=== PATIENT | female | born 1975 | race Caucasian/White ===

== ENCOUNTER 2017-03-05 17:53 | Emergency (ER) | payer MEDICAID ==
[2017-03-05] MEDS ORDERED: Bacitracin Oint 1 GM U/D Packet TOP ONE (18:03)
[2017-03-05 18:09] VITALS: BP 127/84
--- NOTE | 2017-03-05 18:52 | EDM.PDOC ---
[id number] 4d HURT FINGER Time Seen by Provider: 03/05/17 18:10 Source of Information: Reports: Patient, Family History Limitations: Reports: No Limitations - History of Present Illness INITIAL COMMENTS - FREE TEXT/NARRATIVE: 41-year-old female who cut her right hand on a piece of tin while taking out the garbage. She has a flap laceration on the back of her right hand at the base of the small finger. Onset: Sudden Duration: Hour(s): (Within the past hour) Location: Reports: Upper Extremity, Right Severity: Mild Associated Symptoms: Reports: No Other Symptoms - Related Data Allergies Allergy/AdvReac Type Severity Reaction Status Date / Time metronidazole [From Flagyl] Allergy Severe Anaphylactic Verified 12/09/15 07:44 Shock erythromycin base Allergy Rash Verified 12/09/15 07:44 [Erythromycin Base] Home Meds: Home Meds Adalimumab [Humira] 40 mg SUBCUT .[id number] 06/05/14 [History] Ibuprofen 800 mg PO TID PRN 06/05/14 [History] Rosuvastatin [Crestor] 20 mg PO DAILY 06/05/14 [History] clonazePAM [Clonazepam] 1 mg PO TID 06/05/14 [History] Pantoprazole Sodium [Protonix] 40 mg PO DAILY #30 tablet. 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: Musculoskeletal History: Reports: Fracture Other Musculoskeletal History: boxer's fracture right hand with pin Neurological History: Reports: Seizure Other Neuro History: seizures as child Psychiatric History: Reports: Anxiety, Depression, OCD Other Immunologic History: on Humira - Past Surgical History Female Surgical History: Reports: Hysterectomy, Other (See Below) Social & Family History - Tobacco Use Smoking Status *Q: Current Every Day Smoker Years of Tobacco use: 31 Packs/Tins Daily: 1 Used Tobacco, but Quit: No Month Tobacco Last Used: November Second Hand Smoke Exposure: Yes - Caffeine Use Caffeine Use: Reports: Coffee - Alcohol Use Days Per Week of Alcohol Use: 0 - Recreational Drug Use Recreational Drug Use: No Drug Use in Last 12 Months: Yes Recreational Drug Type: Reports: Marijuana/Hashish Recreational Drug Use Frequency: Monthly ED ROS GENERAL - Review of Systems Review Of Systems: See Below Constitutional: Denies: Fever Respiratory: Denies: Shortness of Breath, Cough GI/Abdominal: Denies: Nausea, Vomiting Neurological: Reports: No Symptoms Psychiatric: Reports: No Symptoms ED EXAM, SKIN/RASH Exam: See Below Exam Limited By: No Limitations General Appearance: Alert, No Apparent Distress Respiratory/Chest: No Respiratory Distress Extremities: Other (Remainder of exam is limited to the right hand. The patient has a 3 cm flap laceration on the dorsal aspect of the small finger of the right hand near the MP joint. There are no deep structures involved. Distal CMS is intact.) Course - Vital Signs Last Recorded V/S: Last Vital Signs Temp 96 F 03/05/17 18:16 Pulse 83 03/05/17 18:16 Resp 12 03/05/17 18:16 BP 127/84 03/05/17 18:16 Pulse Ox 97 03/05/17 18:16 - Orders/Labs/Meds Meds: Medications Discontinued Medications Generic Name Dose Route Start Last Admin Trade Name Johnq PRN Reason Stop Dose Admin Bacitracin 1 dose 03/05/17 18:03 03/05/17 18:20 Bacitracin Oint 1 Gm TOP 03/05/17 18:04 1 dose ONETIME ONE Administration Lidocaine HCl 5 ml 03/05/17 18:03 03/05/17 18:20 Xylocaine-Mpf 1% INJECT 03/05/17 18:04 5 ml ONETIME ONE Administration - Re-Assessments/Exams Free Text/Narrative Re-Assessment/Exam: 03/05/17 19:13 The area was infiltrated with 1% lidocaine, cleansed thoroughly with normal saline and 7 5-0 Ethilon sutures were used to close the laceration. Topical bacitracin and a dressing were applied and the sutures can be removed in 8 days. She should recheck sooner if concerns of infection or not healing satisfactorily. Departure - Departure Time of Disposition: 19:01 Disposition: Home, Self-Care 01 Condition: Good Clinical Impression: Laceration of hand Qualifiers: Encounter type: initial encounter Foreign body presence: without foreign body Laterality: right Qualified Code(s): S61.411A - Laceration without foreign body of right hand, initial encounter - Discharge Information Instructions: Laceration Care, Adult, [id number] Referrals: Zafar Ruiz Sr, MD [Primary Care Provider] - Forms: ED Department Discharge Care Plan Goals: Keep wound covered and clean while healing. Sutures can be removed in 8 days. Recheck sooner if concerns of infection or not healing satisfactorily.
== END 2017-03-05 19:01 | disposition home or self-care (01) ==
LOC: JP.ED 17:53
DX: S61.411A Laceration without foreign body of right hand, initial encounter (principal); I10 Essential (primary) hypertension; E78.00 Pure hypercholesterolemia, unspecified; F41.9 Anxiety disorder, unspecified; F32.9 Major depressive disorder, single episode, unspecified; F17.210 Nicotine dependence, cigarettes, uncomplicated; Z88.1 Allergy status to other antibiotic agents; Z88.8 Allergy status to other drugs, medicaments and biological substances; Z79.899 Other long term (current) drug therapy; Z90.710 Acquired absence of both cervix and uterus; W26.8XXA Contact with other sharp object(s), not elsewhere classified, initial encounter
CPT/HCPCS: 12002; 99283-25

== ENCOUNTER 2017-03-11 11:46 | Emergency (ER) | payer MEDICAID ==
[2017-03-11 12:57] VITALS: BP 106/69
[2017-03-11] MEDS ORDERED: Bacitracin Oint 1 GM U/D Packet TOP ONE (13:16)
--- NOTE | 2017-03-11 13:16 | EDM.PDOC ---
ED HPI GENERAL MEDICAL PROBLEM - General Chief Complaint: Skin Complaint Stated Complaint: STICHES INFECTED AND CAN NOT MOVE FINGER Time Seen by Provider: 03/11/17 13:11 Source of Information: Reports: Patient History Limitations: Reports: No Limitations - History of Present Illness INITIAL COMMENTS - FREE TEXT/NARRATIVE: With stitches 5 days ago due to injury. Sliced right 5th digit on a piece of tin. Tetanus current. Now notes increase in pain and redness around the stitches. Has been using neosporin. No fevers. Onset: Today Duration: Getting Worse Location: Reports: Upper Extremity, Right Quality: Reports: Ache Severity: Mild Improves with: Reports: None Worsens with: Reports: Movement Associated Symptoms: Reports: No Other Symptoms - Related Data Allergies Allergy/AdvReac Type Severity Reaction Status Date / Time metronidazole [From Flagyl] Allergy Severe Anaphylactic Verified 12/09/15 07:44 Shock erythromycin base Allergy Rash Verified 12/09/15 07:44 [Erythromycin Base] Home Meds: Home Meds Adalimumab [Humira] 40 mg SUBCUT .[id number] 06/05/14 [History] Ibuprofen 800 mg PO TID PRN 06/05/14 [History] Rosuvastatin [Crestor] 20 mg PO DAILY 06/05/14 [History] clonazePAM [Clonazepam] 1 mg PO TID 06/05/14 [History] Pantoprazole Sodium [Protonix] 40 mg PO DAILY #30 tablet. 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: Musculoskeletal History: Reports: Fracture Other Musculoskeletal History: boxer's fracture right hand with pin Neurological History: Reports: Seizure Other Neuro History: seizures as child Psychiatric History: Reports: Anxiety, Depression, OCD Other Immunologic History: on Humira - Past Surgical History Female Surgical History: Reports: Hysterectomy, Other (See Below) Social & Family History - Tobacco Use Smoking Status *Q: Current Every Day Smoker Years of Tobacco use: 30 Packs/Tins Daily: 0.5 Used Tobacco, but Quit: No Month Tobacco Last Used: November Second Hand Smoke Exposure: Yes - Caffeine Use Caffeine Use: Reports: Coffee - Alcohol Use Days Per Week of Alcohol Use: 0 - Recreational Drug Use Recreational Drug Use: No Drug Use in Last 12 Months: Yes Recreational Drug Type: Reports: Marijuana/Hashish Recreational Drug Use Frequency: Monthly ED ROS GENERAL - Review of Systems Review Of Systems: See Below Constitutional: Reports: No Symptoms HEENT: Reports: No Symptoms Respiratory: Reports: No Symptoms Cardiovascular: Reports: No Symptoms Endocrine: Reports: No Symptoms GI/Abdominal: Reports: No Symptoms Musculoskeletal: Reports: No Symptoms Skin: Reports: Wound ED EXAM, SKIN/RASH Exam: See Below Exam Limited By: No Limitations General Appearance: Alert, WD/WN, No Apparent Distress Respiratory/Chest: No Respiratory Distress, Lungs Clear, Normal Breath Sounds, No Accessory Muscle Use, Chest Non-Tender Cardiovascular: Normal Peripheral Pulses, Regular Rate, Rhythm, No Edema, No Gallop, No JVD, No Murmur, No Rub Extremities: Joint Swelling (right 5th digit with stitches in place, redness noted with mild swelling. No purulent drainage noted.) Course - Vital Signs Last Recorded V/S: Last Vital Signs Temp 95.3 F L 03/11/17 12:59 Pulse 67 03/11/17 12:59 Resp 16 03/11/17 12:59 BP 106/69 03/11/17 12:59 Pulse Ox 96 03/11/17 12:59 Departure - Departure Time of Disposition: 13:14 Disposition: Home, Self-Care 01 Condition: Good Clinical Impression: Cellulitis of right little finger - Discharge Information Forms: ED Department Discharge Additional Instructions: Rx for Cephalexin 500mg QID x 7 days. To keep wound open to air. May apply bacitracin daily. May shower with antibacterial soap daily. Will have sutures out in the clinic later in the week. - Problem List & Annotations (1) Cellulitis of right little finger SNOMED Code(s): 64701781 Code(s): L03.011 - CELLULITIS OF RIGHT FINGER Status: Acute Priority: Low Current Visit: Yes
== END 2017-03-11 13:30 | disposition home or self-care (01) ==
LOC: JP.ED 11:46
DX: L03.011 Cellulitis of right finger (principal); E78.00 Pure hypercholesterolemia, unspecified; I10 Essential (primary) hypertension; F41.9 Anxiety disorder, unspecified; F32.9 Major depressive disorder, single episode, unspecified; F17.210 Nicotine dependence, cigarettes, uncomplicated; Z79.899 Other long term (current) drug therapy; Z88.1 Allergy status to other antibiotic agents; Z88.8 Allergy status to other drugs, medicaments and biological substances
CPT/HCPCS: 99283